=== PATIENT | female | born 1990 | race American Indian/Alaskan Native ===

== ENCOUNTER 2019-05-24 09:55 | Emergency (ER) | payer OTHER ==
--- NOTE | 2019-05-24 10:25 | Emergency Department Report ---
ED General Adult HPI - General Chief complaint: Nausea/Vomiting/Diarrhea Stated complaint: N/V Time Seen by Provider: 05/24/19 10:23 Source: patient, EMS (ems notes not available at time of chart dictation), RN notes reviewed Mode of arrival: Ambulatory Limitations: No Limitations - History of Present Illness Initial comments: This is a 28-year-old female. The patient is not known to this provider previously. Patient states that she is 2, para 1. Patient states last menstruation is May 06. 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 Patient also reports a history of hyperemesis," WPW", all of which were treated and diagnosed in [place]. Patient is new to this area. Patient presents to the ER with a complaint of reported nausea and vomiting. She is not sure if she has any weight loss. She denies headache, neck pain, chest pain. She has abdominal cramping but no abdominal pain currently. She denies urinary symptoms. She is given IV fluids and antibiotic medication in the ER, which so far have improved her symptoms. -: Gradual, days(s) (4) Radiation: abdomen Quality: other (pain is described as aching and cramping) Consistency: constant Improves with: rest Worsens with: movement, other (increases with nausea, vomiting) - Related Data Previous Rx's Medication Instructions Recorded Last Taken Type Doxylamine Succinate/Vit B6 1 each PO QHS PRN #30 tablet. 05/24/19 Unknown Rx [David Cuello 10-10 mg Tablet] Andrey Root [Andrey] 250 mg PO QID PRN #30 capsule 05/24/19 Unknown Rx Ondansetron [Zofran Odt] 4 mg PO Q8HR PRN #20 tab.rapdis 05/24/19 Unknown Rx Vit-Fe Fumar-FA [ 1 tab PO QDAY #30 tablet 05/24/19 Unknown Rx Vitamin] Allergies Allergy/AdvReac Type Severity Reaction Status Date / Time acetaminophen [From Lortab] Allergy Dizziness Verified 05/24/19 10:13 amoxicillin Allergy Rash Verified 05/24/19 10:13 hydrocodone [From Lortab] Allergy Dizziness Verified 05/24/19 10:13 Penicillins Allergy Vomiting Verified 05/24/19 10:13 tramadol Allergy Dizziness Verified 05/24/19 10:13 ED Review of Systems ROS: Stated complaint: N/V Other details as noted in HPI Constitutional: denies: fever Eyes: denies: eye discharge ENT: denies: epistaxis Respiratory: denies: cough Cardiovascular: denies: chest pain, palpitations Gastrointestinal: nausea, vomiting Genitourinary: denies: dysuria Musculoskeletal: myalgia Skin: denies: lesions Neurological: denies: headache Psychiatric: denies: anxiety Hematological/Lymphatic: denies: easy bleeding ED Past Medical Hx - Past Medical History Previous Medical History?: Yes Hx Hypertension: Yes Additional medical history: IBS. WPW - Surgical History Past Surgical History?: Yes Additional Surgical History: - Social History Smoking Status: Never Smoker Substance Use Type: None - Medications Home Medications: Home Medications Medication Instructions Recorded Confirmed Last Taken Type Doxylamine Succinate/Vit B6 1 each PO QHS PRN #30 tablet. 05/24/19 Unknown Rx [David Dr 10-10 mg Tablet] Andrey Root [Andrey] 250 mg PO QID PRN #30 capsule 05/24/19 Unknown Rx Ondansetron [Zofran Odt] 4 mg PO Q8HR PRN #20 tab.rapdis 05/24/19 Unknown Rx Vit-Fe Fumar-FA [ 1 tab PO QDAY #30 tablet 05/24/19 Unknown Rx Vitamin] ED Physical Exam - General Limitations: No Limitations General appearance: alert, in no apparent distress - Head Head exam: Present: atraumatic, normocephalic - Eye Eye exam: Present: normal appearance, EOMI. Absent: nystagmus - ENT ENT exam: Present: normal exam, normal orophraynx, mucous membranes moist, normal external ear exam - Neck Neck exam: Present: normal inspection, full ROM. Absent: tenderness, meningismus - Respiratory Respiratory exam: Present: normal lung sounds bilaterally. Absent: respiratory distress - Cardiovascular Cardiovascular Exam: Present: regular rate, normal rhythm, normal heart sounds. Absent: bradycardia, tachycardia, irregular rhythm, systolic murmur, diastolic murmur, rubs, gallop - GI/Abdominal GI/Abdominal exam: Present: soft. Absent: distended, tenderness, guarding, rebound, rigid, pulsatile mass - Extremities Exam Extremities exam: Present: normal inspection, full ROM, other (2+ pulses noted in the bilateral upper, lower extremities. Compartments soft. No long bony tenderness. The pelvis is stable.). Absent: pedal edema, calf tenderness - Back Exam Back exam: Present: normal inspection, full ROM. Absent: tenderness, CVA tenderness (R), CVA tenderness (L), paraspinal tenderness, vertebral tenderness - Neurological Exam Neurological exam: Present: alert, oriented X3, other (Extraocular movements intact. Tongue midline. No facial droop. Facial sensation intact to light touch in the V1, V2, V3 distribution bilaterally. 5 and 5 strength in 4 extremities.. Sensation is intact to light touch in 4 extremities.). Absent: motor sensory deficit - Psychiatric Psychiatric exam: Present: normal affect, normal mood - Skin Skin exam: Present: warm, dry, intact, normal color. Absent: rash ED Course Vital Signs 05/24/19 05/24/19 05/24/19 10:14 10:15 10:31 Temperature 98.6 F Pulse Rate 81 93 H Respiratory 16 11 L Rate Blood Pressure 149/93 168/98 Blood Pressure [Left] O2 Sat by Pulse 99 80 L 100 Oximetry 05/24/19 05/24/19 05/24/19 10:45 11:00 11:32 Temperature Pulse Rate 84 87 96 H Respiratory 21 20 22 Rate Blood Pressure 144/93 144/93 144/93 Blood Pressure [Left] O2 Sat by Pulse 100 100 100 Oximetry 05/24/19 05/24/19 05/24/19 11:45 12:00 12:15 Temperature Pulse Rate 92 H 93 H 98 H Respiratory 14 9 L 26 H Rate Blood Pressure 152/88 143/92 143/92 Blood Pressure [Left] O2 Sat by Pulse 100 100 100 Oximetry 05/24/19 12:30 Temperature Pulse Rate 86 Respiratory 18 Rate Blood Pressure Blood Pressure 132/67 [Left] O2 Sat by Pulse 98 Oximetry - Reevaluation(s) Reevaluation #1: 05/24/19 10:25 ga intelligence research specialist aware Filled ID Written Drug QTY Days Prescriber Rx # Pharmacy * Refills Daily Dose Pymt Type [employer] 07/03/2018 1 07/02/2018 MEPERIDINE 50 MG TABLET 5.0 2 HE BAT 405457 [facility] ([id number]) 0 [place] 06/17/2018 1 06/11/2018 MEPERIDINE 50 MG TABLET 30.0 7 [facility] [id number] [facility] ([id number]) 0 Medicaid [place] Reevaluation #2: 05/24/19 12:01 Differential diagnosis, including not limited to: IBS, nausea and vomiting of , hypertension Assessment and plan: 28-year-old female who reports history of IBS, hypertension, hyperemesis with reported nausea and vomiting. Patient is afebrile with reassuring vital signs with the exception of hypertension. She does not appear to be in any acute distress. Her physical exam is unremarkable. Screening laboratory studies so far unremarkable. Blood pressure currently in the 140s. Patient is being given a trial of oral liquid at this time. We will reassess. Patient counseled on need to follow up as soon as possible with outpatient MANAGEMENT PSYCHOLOGIST, and maternal- medicine for all of her endorsed past medical history, as she is high risk. Patient endorses understanding. Reevaluation #3: 05/24/19 12:53 Patient tolerating liquid feeds. Urinalysis consistent with dehydration. Marijuana metabolites also demonstrated. Patient is clinically sober at this time. Ultrasound confirms intrauterine , failing is suggested. Blood pressure is improved. Patient will be started on vitamins, appropriate antibiotic medications, she is counseled to avoid consumption, exposure of cannabis, marijuana, she will need to follow up with an outpatient MANAGEMENT PSYCHOLOGIST doctor to initiate outpatient care, and will likely will require referral to outpatient high risk perinatologist. ED Medical Decision Making - Lab Data Result diagrams: 05/24/19 10:27 05/24/19 10:27 Vital Signs 05/24/19 05/24/19 05/24/19 10:14 10:15 10:31 Temperature 98.6 F Pulse Rate 81 93 H Respiratory 16 11 L Rate Blood Pressure 149/93 168/98 O2 Sat by Pulse 99 80 L 100 Oximetry 05/24/19 05/24/19 05/24/19 10:45 11:00 11:32 Temperature Pulse Rate 84 87 96 H Respiratory 21 20 22 Rate Blood Pressure 144/93 144/93 144/93 O2 Sat by Pulse 100 100 100 Oximetry 05/24/19 11:45 Temperature Pulse Rate 92 H Respiratory 14 Rate Blood Pressure 152/88 O2 Sat by Pulse 100 Oximetry Lab Results 05/24/19 05/24/19 05/24/19 Range/Units 10:27 10:27 10:27 WBC 6.5 (4.5-11.0) K/mm3 RBC 4.23 (3.65-5.03) M/mm3 Hgb 12.5 (10.1-14.3) gm/dl Hct 36.9 (30.3-42.9) % MCV 87 (79-97) fl MCH 30 (28-32) pg MCHC 34 (30-34) % RDW 15.1 (13.2-15.2) % Plt Count 234 (140-440) K/mm3 Lymph % (Auto) 20.4 (13.4-35.0) % Jackson % (Auto) 7.4 H (0.0-7.3) % Eos % (Auto) 0.3 (0.0-4.3) % Baso % (Auto) 0.9 (0.0-1.8) % Lymph # 1.3 (1.2-5.4) K/mm3 Jackson # 0.5 (0.0-0.8) K/mm3 Eos # 0.0 (0.0-0.4) K/mm3 Baso # 0.1 (0.0-0.1) K/mm3 Seg Neutrophils % 71.0 H (40.0-70.0) % Seg Neutrophils # 4.6 (1.8-7.7) K/mm3 Sodium 135 L (137-145) mmol/L Potassium 3.6 (3.6-5.0) mmol/L Chloride 99.9 (98-107) mmol/L Carbon Dioxide 22 (22-30) mmol/L Anion Gap 17 mmol/L BUN 7 (7-17) mg/dL Creatinine 0.4 L (0.7-1.2) mg/dL Estimated GFR > 60 ml/min BUN/Creatinine Ratio 18 % Glucose 94 (65-100) mg/dL Calcium 9.4 (8.4-10.2) mg/dL Magnesium (1.7-2.3) mg/dL Total Bilirubin 0.50 (0.1-1.2) mg/dL AST 13 (5-40) units/L ALT 10 (7-56) units/L Alkaline Phosphatase 44 (35-129) units/L Total Creatine Kinase (30-135) units/L Total Protein 7.7 (6.3-8.2) g/dL Albumin 4.4 (3.9-5) g/dL Albumin/Globulin Ratio 1.3 % HCG, Qual Positive (Negative) HCG, Quant (0-4) mIU/mL Blood Type Antibody Screen 05/24/19 05/24/19 05/24/19 Range/Units 10:34 10:34 10:44 WBC (4.5-11.0) K/mm3 RBC (3.65-5.03) M/mm3 Hgb (10.1-14.3) gm/dl Hct (30.3-42.9) % MCV (79-97) fl MCH (28-32) pg MCHC (30-34) % RDW (13.2-15.2) % Plt Count (140-440) K/mm3 Lymph % (Auto) (13.4-35.0) % Jackson % (Auto) (0.0-7.3) % Eos % (Auto) (0.0-4.3) % Baso % (Auto) (0.0-1.8) % Lymph # (1.2-5.4) K/mm3 Jackson # (0.0-0.8) K/mm3 Eos # (0.0-0.4) K/mm3 Baso # (0.0-0.1) K/mm3 Seg Neutrophils % (40.0-70.0) % Seg Neutrophils # (1.8-7.7) K/mm3 Sodium (137-145) mmol/L Potassium (3.6-5.0) mmol/L Chloride (98-107) mmol/L Carbon Dioxide (22-30) mmol/L Anion Gap mmol/L BUN (7-17) mg/dL Creatinine (0.7-1.2) mg/dL Estimated GFR ml/min BUN/Creatinine Ratio % Glucose (65-100) mg/dL Calcium (8.4-10.2) mg/dL Magnesium 1.90 (1.7-2.3) mg/dL Total Bilirubin (0.1-1.2) mg/dL AST (5-40) units/L ALT (7-56) units/L Alkaline Phosphatase (35-129) units/L Total Creatine Kinase 138 H (30-135) units/L Total Protein (6.3-8.2) g/dL Albumin (3.9-5) g/dL Albumin/Globulin Ratio % HCG, Qual (Negative) HCG, Quant 86944 H (0-4) mIU/mL Blood Type B POSITIVE Antibody Screen Negative - EKG Data -: EKG Interpreted by [place] EKG shows normal: sinus rhythm Rate: normal - EKG Data When compared to previous EKG there are: previous EKG unavailable 05/24/19 12:02 This is a normal sinus rhythm, normal axis, significant motion artifact, QTC prolonged, borderline poor progression, this is an abnormal EKG, the EKG is not consistent with ST elevation myocardial infarction. - Radiology Data Radiology results: pending, report reviewed, image reviewed eport Referring Physician: JOSE MANUEL ARIAS Patient Name: CARLOS RICCI Date of : 1990 Sex: Female Report Date: 2019-05-24 Report Status: [place] [address] Ultrasound Report Signed Patient: CARLOS RICCI MR#: [id number] : 1990 Acct:[id number] Age/Sex: 28 / F ADM Date: 05/24/19 Loc: ED Attending Dr: Ordering Physician: JOSE MANUEL ARIAS MD Date of Service: 05/24/19 Procedure(s): US OB <= 14 weeks fetus Accession Number(s): [id number] cc: JOSE MANUEL ARIAS MD OB Ultrasound HISTORY: Patient with hyperemesis, serum quantitative 48,000. TECHNIQUE: Grayscale and color Doppler imaging performed. COMPARISON: No recent comparison ultrasound is available. FINDINGS: Transabdominal only examination was performed per the patient's request. The uterus measures 9.5 x 5.2 x 6.8 cm with endometrial echo complex measuring 2.5 cm. There is an intrauterine gestational sac in the fundal region with mean diameter of 12.5 mm which would correlate with an EGA of 6 weeks and 1 day. The sac is somewhat crescentic in appearance instead of a normal rounded appearance and only a yolk sac is identified. There is no pole. Uterus otherwise appears unremarkable. The left ovary is normal in size with a probable complex functional cyst measuring 1.5 cm internally. Right ovary is not visualized. No appreciable pelvic free fluid. IMPRESSION: 1. Intrauterine gestational sac as outlined above is worrisome for failing . Recommend serial sonographic follow-up/serial beta hCG evaluation per further evaluation. 2. Probable complex functional cyst in the left ovary. On follow-up this should also be evaluated to exclude any underlying mass since of these findings can have a similar appearance. 3. Nonvisualization of the right ovary. Signer Name: Shamir Morley MD Signed: 05/24/2019 12:06 PM Workstation Name: [id number] Transcribed By: WENDY Dictated By: Shamir Morley MD Electronically Authenticated By: Shamir Morley MD Signed Date/Time: 05/24/19 1206 Critical care attestation.: If time is entered above; I have spent that time in minutes in the direct care of this critically ill patient, excluding procedure time. ED Disposition Clinical Impression: Nausea and vomiting during Disposition: DC-01 TO HOME OR SELFCARE Is pt being admited?: No Does the pt Need Aspirin: No Condition: Stable Additional Instructions: Advance diet as tolerated. Take the vitamins as directed. Take the andrey as directed, and diclegis, as directed. Take Zofran as needed for nausea, vomiting, if the aforementioned nausea medications do not work. Follow up as soon as possible with an outpatient MANAGEMENT PSYCHOLOGIST doctor to initiate outpatient care. Rest, avoid heavy lifting, and avoid sexual activity until cleared by a wage analyst. Urine toxicology screen demonstrated the presence of cannabis, marijuana. Strongly recommend that patient not be exposed to, or consume marijuana or cannabis during . Consumption of cannabis/marijuana during may worsen vomiting, and may cause defects, disability, paralysis, loss of quality of life for the unborn fetus, or a miscarriage. Return to the emergency room right away with new, worsening or different symptoms not present on the initial emergency room evaluation. Follow up with any of the listed gynecology specialist as soon as possible to initiate outpatient care. Referrals: [facility] [Provider Group] - 3-5 Days [facility] [Provider Group] - 3-5 Days [facility] [Provider Group] - 3-5 Days
[2019-05-24] MEDS ORDERED: REGLAN IV ONE (10:34)
[2019-05-24] MEDS ORDERED: NACL 0.9% 1000 ML 1,000 ML IV ONE (10:34)
[2019-05-24] MEDS ORDERED: APRESOLINE IV ONE (10:34)
[2019-05-24 10:39] LABS: Basophils # (Auto) 0.1 K/mm3 (0.0-0.1); Basophils % (Auto) 0.9 % (0.0-1.8); Eosinophils % (Auto) 0.3 % (0.0-4.3); Hematocrit 36.9 % (30.3-42.9); Hemoglobin 12.5 gm/dl (10.1-14.3); Lymphocytes # (Auto) 1.3 K/mm3 (1.2-5.4); Lymphocytes % (Auto) 20.4 % (13.4-35.0); Mean Corpuscular HGB Conc 34 % (30-34); Mean Corpuscular Volume 87 fl (79-97); Monocytes # (Auto) 0.5 K/mm3 (0.0-0.8); Monocytes % (Auto) 7.4 % (0.0-7.3); Platelet Count 234 K/mm3 (140-440); Red Blood Count 4.23 M/mm3 (3.65-5.03); Red Cell Distribution Width 15.1 % (13.2-15.2)
[2019-05-24 11:00] LABS: BUN/Creatinine Ratio 18; Blood Urea Nitrogen 7 mg/dL (7-17); Calcium 9.4 mg/dL (8.4-10.2)
[2019-05-24] MEDS ORDERED: D5/0.45NS 1,000 ML IV SCH (11:00)
[2019-05-24 11:01] LABS: Alanine Aminotransferase 10 units/L (7-56); Albumin 4.4 g/dL (3.9-5); Hemolysis Index 4
--- NOTE | 2019-05-24 12:10 | Ultrasound Report ---
OB Ultrasound HISTORY: Patient with hyperemesis, serum quantitative 48,000. TECHNIQUE: Grayscale and color Doppler imaging performed. COMPARISON: No recent comparison ultrasound is available. FINDINGS: Transabdominal only examination was performed per the patient's request. The uterus measures 9.5 x 5.2 x 6.8 cm with endometrial echo complex measuring 2.5 cm. There is an in trauterine gestational sac in the fundal region with mean diameter of 12.5 mm which would correlate w ith an EGA of 6 weeks and 1 day. The sac is somewhat crescentic in appearance instead of a normal rou nded appearance and only a yolk sac is identified. There is no pole. Uterus otherwise appears u nremarkable. The left ovary is normal in size with a probable complex functional cyst measuring 1.5 c m internally. Right ovary is not visualized. No appreciable pelvic free fluid. IMPRESSION: 1. Intrauterine gestational sac as outlined above is worrisome for failing . Recommend seria l sonographic follow-up/serial beta hCG evaluation per further evaluation. 2. Probable complex functional cyst in the left ovary. On follow-up this should also be evaluated to exclude any underlying mass since of these findings can have a similar appearance. 3. Nonvisualization of the right ovary. Signer Name: Shamir Morley MD Signed: 05/24/2019 12:06 PM Workstation Name: [id number]
[2019-05-24 12:14] LABS: Bilirubin,Urine NEG (Negative); Blood,Urine NEG (Negative); Color,Urine Yellow (Yellow); Mucus,Urine 1+ /HPF; Urobilinogen,Urine < 2.0 mg/dL (<2.0)
[2019-05-24 12:24] LABS: Amphetamine Screen,Urine PRESUMPTIVE NEGATIVE; Benzodiazepines Screen,Urine PRESUMPTIVE NEGATIVE; Cocaine Screen,Urine PRESUMPTIVE NEGATIVE; Methadone Screen,Urine PRESUMPTIVE NEGATIVE; Opiate Screen,Urine PRESUMPTIVE NEGATIVE
[2019-05-24 12:48] LABS: Cannabinoid Screen,Urine PRESUMPTIVE POSITIVE
[2019-05-24 13:32] VITALS: BP 159/99
== END 2019-05-24 13:32 | disposition home or self-care (01) ==
LOC: ED 09:55
DX: O21.8 Other vomiting complicating pregnancy (principal); I10 Essential (primary) hypertension; K58.9 Irritable bowel syndrome, unspecified; Z88.0 Allergy status to penicillin; Z88.6 Allergy status to analgesic agent; Z88.1 Allergy status to other antibiotic agents; Z3A.01 Less than 8 weeks gestation of pregnancy
CPT/HCPCS: 36415; 76801; 80053; 80307; 81001; 82550; 83735; 84702; 84703; 85025; 86850; 86900; 86901; 93005; 93010; 96361; 96374; 99285; J2765; J7030